=== PATIENT | male | born 1980 | race African-American/Black ===

== ENCOUNTER 2021-04-14 14:38 | Emergency (ER) | payer MEDICAID ==
[~2021-04-14] VITALS: Ht 182.9 cm; Wt 95.0 kg
[2021-04-14] MEDS ORDERED: LIDOCAINE HCL/EPINEPHRINE 1%-EPI 1:100,000 20 ML VIAL INFIL ONE (15:00)
[2021-04-14] MEDS ORDERED: SODIUM CHLORIDE 0.9% 1,000 ML IV ONE (15:15)
[2021-04-14 15:37] LABS: BASOPHILS % 0.4 % (0.0-2.0); EOSINOPHILS % 1.5 % (0.0-5.0); HEMATOCRIT. 28.2 % (42.0-52.0); HEMOGLOBIN. 9.5 g/dL (14.0-18.0); LYMPHOCYTES % 7.1 % (20.0-50.0); MEAN CORPUSCULAR HEMOGLOBIN 31.2 pg (28.0-32.0); MEAN PLATELET VOLUME 8.4 fl (7.4-10.4); MONOCYTES % 5.7 % (2.0-8.0); NEUTROPHILS % 85.3 % (40.0-76.0); PLATELET 670 x1000/uL (130-400); RED BLOOD CELL COUNT 3.04 mill/uL (4.7-6.1); RED CELL DISTRIBUTION WIDTH 15.7 % (11.6-14.6)
[2021-04-14 15:44] LABS: CHLORIDE 106 mEq/L (98-107)
[2021-04-14 15:47] LABS: INR 1.1; PROTHROMBIN TIME 11.9 sec (9.6-11.0)
[2021-04-14 17:29] VITALS: BP 141/65
== END 2021-04-14 17:56 | disposition home or self-care (01) ==
LOC: ER 14:55
DX: K91.840 Postprocedural hemorrhage of a digestive system organ or structure following a digestive system procedure (principal); Y83.8 Other surgical procedures as the cause of abnormal reaction of the patient, or of later complication, without mention of misadventure at the time of the procedure; D64.9 Anemia, unspecified; Z98.890 Other specified postprocedural states
CPT/HCPCS: 12001; 36415; 80053; 85025; 85610; 96360; 99283; J3490; J7030